=== PATIENT | female | born 1950 | race Caucasian/White ===

== ENCOUNTER → 2018-10-19 | Outpatient (CLI) | payer MEDICARE ==
[~2018-10-19] MED LIST: ATIVAN0.5 MG PO; AUGMENTIN 875 M1 TAB PO; FIORICET 325 MG1 TAB PO; GLUCOPHAGE500 M1 PO; OMEPRAZOLE MAGN20 MG PO; PRESERVISION A1 EAC1 PO; TENORMIN25 M1 PO; VIBRAMYCIN100 MG PO
--- NOTE | ~2018-10-19 | ST ---
[place], [place] EXERCISE STRESS TEST REPORT NAME: TREV KUMAR UNIT #: [id number] ROOM: DOCTOR: EDNA OTTO MD BIRTHDATE: [birth year] DOS: 10/19/2018 LEXISCAN PORTION OF THE LEXISCAN CARDIOLITE Baseline cardiogram, sinus rhythm with nonspecific ST-T changes. A 0.4 mg Lexiscan, duration of 10 seconds. With Lexiscan, no new EKG changes, no chest pain. Blood pressure and heart rate response is normal. Nuclear images will be reported separately. EDNA OTTO MD CM:STRESS:EXERCISE STRESS TEST REPORT [id number] EDNA OTTO MD
--- NOTE | 2018-10-19 07:15 | NUR ---
INFORMED CONSENT OBTAINED FOR LEXISCAN NUCLEAR STRESS TEST WITH DR. OTTO. RESTING EKG NSR WITH A RESTING HR OF 75 WITH BP OF 152/84. LUNGS CLEAR WITH SPO2 OF 100% ON ROOM AIR. PT COMPLETED A 1:00 LEXISCAN PROTOCOL RECEIVING LEXISCAN 0.4 MG IV OVER 10 SECONDS. HAD NO CHEST PAIN OR ANY EKG CHANGES. DID C/O "WEIRD" FEELING THAT WAS RELIEVED IN RECOVERY. HAD A PEAK HR OF 127 WITH BP OF 146/70. LAST RECOVERY HR OF 112 WITH BP OF 144/60. AWAITING SCANNING IN STABLE CONDITION.
== END | disposition home or self-care (01) ==
LOC: CARD 01:15
DX: R61 Generalized hyperhidrosis (principal); R06.02 Shortness of breath

== ENCOUNTER → 2020-05-09 | Outpatient (CLI) | payer MEDICARE | END | disposition home or self-care (01) | LOC: CARD 07:52 | PROVIDERS: ATTEND Internal Medicine Cardiovascular Disease | DX: I07.1 Rheumatic tricuspid insufficiency (principal); I35.0 Nonrheumatic aortic (valve) stenosis; M79.89 Other specified soft tissue disorders; Z79.899 Other long term (current) drug therapy ==